=== PATIENT | male | born 1955 | race Caucasian/White ===

== ENCOUNTER → 2017-01-14 | Outpatient (CLI) | payer OTHER ==
--- NOTE | 2017-01-14 13:24 | KCIC ---
Indication: Pulmonary nodules. Smoker of 30 years. Follow-up. Technique: Axial images and coronal and sagittal reformatted images are provided. Comparison is from January 20, 2016 and January 14, 2015. One or more of the following individualized dose reduction techniques were utilized for this examination: 1. Automated exposure control 2. Adjustment of the mA and/or kV according to patient size 3. Use of iterative reconstruction technique Findings: 2 nodules in the right upper lobe on image 37 measuring up to 3 mm in size are stable. Nodule along the major fissure on the right on image 39 measuring 4 mm is stable. 4 mm nodule on image 41 in the right lower lobe is stable. Left upper lobe 4 mm nodule on image 35 is stable. Stability of these nodules is documented back to the 2014 exam. No new nodule is identified. There are right upper lobe calcified granulomas. There is mild emphysema. There is no consolidation. There is minimal presumed apical scarring which is stable. There is no pleural effusion. Central airways are patent. There is atheromatous disease in the thoracic aorta. The heart is not enlarged. Coronary artery calcifications are noted. There is no hilar or mediastinal adenopathy. There are degenerative changes in the spine. There is an old L1 compression fracture. IMPRESSION: 1. Stable pulmonary nodules, stability documented for 2 years. No further workup is required per updated Fleischner Society guidelines. 2. Granulomatous disease. 3. Mild emphysema. Electronically signed by: Jesus Knog MD (01/14/2017 1:20 PM) [email or web address]
== END | disposition home or self-care (01) ==
LOC: KCIC CT 11:46
PROVIDERS: ATTEND Family Medicine
DX: D71 Functional disorders of polymorphonuclear neutrophils (principal); J43.9 Emphysema, unspecified; R91.1 Solitary pulmonary nodule; F17.200 Nicotine dependence, unspecified, uncomplicated
CPT/HCPCS: 71250

== ENCOUNTER → 2018-01-23 | Outpatient (CLI) | payer OTHER ==
--- NOTE | 2018-01-23 14:05 | KCIC ---
CT chest without contrast dated 01/23/2018. No comparison available. Clinical data indication: Tobacco use. Lung cancer screening. 30 pack-year history of smoking. TECHNIQUE: Contiguous axial imaging the chest performed without the administration of intravenous contrast. Study was performed as low-dose lung cancer screening protocol with thin cut coronal and axial reconstruction. One or more of the following individualized dose reduction techniques were utilized for this examination: 1. Automated exposure control 2. Adjustment of the mA and/or kV according to patient size 3. Use of iterative reconstruction technique FINDINGS: Heart size within normal limits. No pericardial effusion. Scattered coronary artery calcifications. No mediastinal, hilar or axillary lymphadenopathy. Borderline enlarged pretracheal lymph node measures 8 mm short axis. Thyroid gland is unremarkable. The central airways are patent. Mild upper zone predominant paraseptal emphysema. There is a noncalcified pulmonary nodule in the left upper lobe on image 32 that measures 4 mm. There are a few scattered calcified granuloma. Noncalcified nodular density along the minor fissure on the right (image 35) measures about 4 mm. Small nodule in the right lower lobe on image 39 measures 3 mm. There is some vague reticular nodular densities at the dependent lower lobes with associated groundglass opacity, nonspecific. No pleural effusion. No pneumothorax. Images of upper abdomen are unremarkable. Mild superior endplate compression deformity of L1, age indeterminate. Multilevel spondylosis. IMPRESSION: 1. There are small scattered noncalcified pulmonary nodules within both lungs, nonspecific. Recommend follow-up low-dose lung cancer screening study in one year to ensure stability. Lung RADS category 2. 2. Mild emphysema. 3. Coronary artery calcifications. 4. Mild superior endplate compression deformity of L1, age indeterminate. Electronically signed by: Leonides Fry MD (01/23/2018 2:02 PM) [email or web address]
== END | disposition home or self-care (01) ==
LOC: KCIC CT 12:47
PROVIDERS: ATTEND Family Medicine
DX: Z12.2 Encounter for screening for malignant neoplasm of respiratory organs (principal); J43.9 Emphysema, unspecified; I25.10 Atherosclerotic heart disease of native coronary artery without angina pectoris; M43.8X6 Other specified deforming dorsopathies, lumbar region; M47.894 Other spondylosis, thoracic region; F17.200 Nicotine dependence, unspecified, uncomplicated; R91.1 Solitary pulmonary nodule
CPT/HCPCS: G0297

== ENCOUNTER → 2019-12-04 | Outpatient (CLI) | payer MEDICARE, OTHER ==
[~2019-12-04] MED LIST: CONTRAST GIVEN. MC PRN; IOHEXOL 350 MG/ML 100 ML VIAL. IV ONE
--- NOTE | 2019-12-04 15:03 | RAD ---
EXAM: CT Angiography Abdomen and Pelvis with right Lower Extremity Run-off INDICATION: Reason: PAD, RIGHT LEG / Spl. Instructions: IV OMNI 350 95 MLS / History: TECHNIQUE: CT angiography of the abdomen, pelvis, and right lower extremities was performed with intravenous contrast, [id number], collimated to the area of interest. Vascular 3D images were generated on a dedicated workstation and reviewed. All CT scans performed at this facility utilize dose optimization techniques as appropriate to the exam, including the following: Automated exposure control and adjustment of the mA and/or KV according to patient size (this includes techniques or standardized protocols for targeted exams where dose is indication/reason for exam). IV CONTRAST: Administered COMPARISON: None FINDINGS: VASCULAR FINDINGS: Abdominal Aorta and Branches: Scattered abdominal aortic calcifications. No flow-limiting stenosis. No aneurysm Celiac axis: No significant stenosis. SMA: No significant stenosis. MICHAEL: No significant stenosis. Right renal vessels: No significant stenosis. Left renal vessels: No significant stenosis. Infrarenal aorta: No significant stenosis or aneurysm. Pelvic Vessels: R. Common iliac artery: No significant stenosis. R. External iliac artery: No significant stenosis. R. Internal iliac artery: Less than 50 percent stenosis.. L. Common iliac artery: No significant stenosis. L. External iliac artery: No significant stenosis. L. Internal iliac artery: 50-69 percent stenosis in the proximal internal iliac artery on the left. Right Lower Extremity: R. Common femoral artery: Mixed calcified and noncalcified plaque. No significant stenosis. R. Profunda femoris artery: No significant stenosis. R. SFA: Scattered mixed calcified and noncalcified plaque without significant stenosis R. Popliteal artery: Combination of calcified and noncalcified plaque results in 50-69 percent stenosis in the proximal popliteal artery and greater than 70 percent stenosis in the distal popliteal artery in at least 2 spots. R. Anterior tibial artery: No significant stenosis. R. Tibioperoneal trunk:Distal calcified and noncalcified plaque results in greater than 50 percent stenosis. R. Posterior tibial artery: No significant stenosis. R. Peroneal artery: Mixed calcified and noncalcified plaque proximally results in greater than 50 percent stenosis R. Dorsalis pedis artery: No significant stenosis. R. Plantar artery: No significant stenosis. Left Lower Extremity: L. Common femoral artery: Unremarkable limited visualized portion. L. Profunda femoris artery: Unremarkable in the visualized portion. L. SFA: Not included L. Popliteal artery: Not included L. Anterior tibial artery: Not included L. Tibioperoneal trunk: Not included L. Posterior tibial artery: Not included L. Peroneal artery: Not included L. Dorsalis pedis artery: Not included L. Plantar artery: Not included NON VASCULAR FINDINGS: Mild centrilobular emphysema. Soft tissue in the right inguinal canal compatible with the previous inguinal hernia repair. IMPRESSION: 1. Right lower extremity: Calcified and noncalcified atherosclerotic disease diffusely in the arterial system but with greater involvement of the popliteal artery and its branch vessels. There is three-vessel runoff to the right foot and ankle. Electronically signed by: Bruce Peng MD (12/04/2019 3:00 PM) [id number]
== END | disposition home or self-care (01) ==
LOC: CT 11:20
PROVIDERS: ATTEND Family Medicine
DX: I70.291 Other atherosclerosis of native arteries of extremities, right leg (principal); I70.0 Atherosclerosis of aorta
CPT/HCPCS: 73706; Q9967

== ENCOUNTER → 2020-01-31 | Outpatient (CLI) | payer OTHER | END | disposition home or self-care (01) | LOC: LAB 13:24 | PROVIDERS: ATTEND Surgery Vascular Surgery | DX: Z20.828 Contact with and (suspected) exposure to other viral communicable diseases (principal) | CPT/HCPCS: U0003-CS ==

== ENCOUNTER 2020-02-05 07:06 | Outpatient (CLI) | payer MEDICARE, OTHER ==
[~2020-02-05] VITALS: Ht 182.9 cm; Wt 72.6 kg
[2020-02-05] VITALS (13 sets, daily range): BP systolic 131–167; BP diastolic 77–98
[2020-02-05] MEDS ORDERED: ASPI-886 PO (07:09)
[2020-02-05] MEDS ORDERED: AMLO2.5T5 PO (07:09)
[2020-02-05] MEDS ORDERED: LISI1TAB37 PO (07:09)
[2020-02-05] MEDS ORDERED: ATOR20TA58 PO (07:09)
[2020-02-05] MEDS ORDERED: LIDOCAINE 1% Multi-Dose 20 ML VIAL. ONE (07:41)
[2020-02-05] MEDS ORDERED: IODIXANOL 320 MG/ML 100 ML VIAL. ONE (07:41)
[2020-02-05 07:55] LABS: HEMATOCRIT 43.3 % (39.0-53.0); HEMOGLOBIN 14.9 g/dL (13.0-17.5); RED BLOOD COUNT 4.51 x10^6/uL (4.30-5.70); RED CELL DISTRIBUTION WIDTH 13.5 % (11.5-14.5); WHITE BLOOD COUNT 6.1 x10^3/uL (4.0-11.0)
[2020-02-05 08:05] LABS: PROTHROMBIN TIME PATIENT 12.5 SEC (11.7-14.0)
[2020-02-05 08:13] LABS: CALCIUM 8.9 mg/dL (8.5-10.1); CREATININE 0.8 mg/dL (0.7-1.3); GFR 97.6; POTASSIUM 3.8 mmol/L (3.5-5.1)
[2020-02-05] MEDS ORDERED: MIDAZOLAM HCL/PF 5 MG/5 ML VIAL. ONE (09:14)
[2020-02-05] MEDS ORDERED: HEPARIN for IV BOLUS 10,000 UNIT/10 ML VIAL. ONE (09:14)
[2020-02-05] MEDS ORDERED: fentaNYL PF VIAL 250 MCG/5 ML VIAL ONE (09:14)
[2020-02-05] MEDS ORDERED: LIDOCAINE 1% Multi-Dose 20 ML VIAL. INJ ONE (09:45)
[2020-02-05] MEDS ORDERED: IODIXANOL 320 MG/ML 100 ML VIAL. IART ONE (09:45)
[2020-02-05] MEDS ORDERED: fentaNYL PF VIAL 250 MCG/5 ML VIAL IV ONE (09:45)
[2020-02-05] MEDS ORDERED: MIDAZOLAM HCL/PF 5 MG/5 ML VIAL. IV ONE (09:45)
--- NOTE | 2020-02-05 10:08 | PDOC4 ---
OPERATIVE NOTE Date: Date: Feb 05, 2020 Pre-Op Diagnosis: Atherosclerosis of [place] arteries of right lower extremity with ischemic rest pain right foot Post-Op Diagnosis: Same as above Procedure Performed: 1. Ultrasound-guided access left common femoral artery #2 radiology supervision interpretation aortogram #3 radiology supervision interpretation right leg runoff #4 . -second order catheter placement below the diaphragm (access left common femoral artery catheter tip right common femoral artery) Surgeon: Joseluis Asher Anesthesia Type: Conscious sedation under surgeon and RN supervision using intravenous fentanyl and Versed Versed 1.5 mg fentanyl 100 mcg total 30 minutes Blood Loss: Less than 10 cc Specimans Obtained: None Findings: 1. Abdominal aorta is circumferentially calcified but widely patent without stenosis or aneurysm #2 bilateral common and external iliac arteries are widely patent without focal stenosis #3 bilateral common femoral arteries show bulky calcified plaque with moderate to severe stenosis, right profunda femoris artery shows focal high-grade stenosis at its origin #4 right superficial femoral artery and proximal popliteal artery widely patent #5 right P2 segment of the popliteal artery is occluded and heavily calcified there is reconstitution of the distal popliteal artery with PT and anterior tibial giving runoff to the foot but very sluggish flow #6 the left profunda femoris and proximal SFA are widely patent Complications: None Operative Note: Patient was taken to the Property Consultant and placed supine the table. The groins were prepped and draped in usual sterile fashion. Appropriate timeout was performed. Attention was directed the left common femoral artery was fluoroscopically marked over the femoral head and exam with ultrasound. The distal common femoral artery was noted to have bulky plaque but the proximal common femoral artery was patent and this area was accessed under real-time ultrasound guidance after injecting local anesthetic in the skin. An image of the vessels taken saved for the medical record. The cylinder technique was used to place a micropuncture needle and wire into the common femoral artery and iliac artery and then a cylinder technique was used to exchange the needle for a micropuncture sheath which backbled easily. This was used to introduce a Bentson wire to the abdominal aorta and exchanged the micropuncture sheath for a 5 [place] sheath which was aspirated and flushed without difficulty. This was used to introduce a flush catheter to the abdominal aorta and aortogram was obtained. Cath was pulled back to the order bifurcation and oblique pelvic angiograms were obtained. The catheter was used to hook aorta bifurcation and the wire and the catheter were passed in the proximal right common femoral artery. Right leg runoff was obtained. Oblique views of the right groin were obtained. The catheter was removed over the Bentson wire. The sheath was aspirated and flushed in an oblique view of the left femoral artery access site was obtained. The sheath was used to introduce a 5 [place] minx closure device which was deployed in the standard fashion with excellent hemostasis. Patient was escorted home in stable condition where I discussed the findings and the surgical plan with him and his . Patient was noted to have moderate common femoral stenosis and severe proximal right profunda femoris stenosis. He was also noted to have a mid popliteal occlusion that was highly calcified Plan will be to perform a right common femoral profunda femoral endarterectomy to maximize his inflow. If this does not improve his ischemic rest pain would consider endovascular intervention of the popliteal artery likely CSI orbital atherectomy. ARTEMIO ASHER MD Feb 05, 2020 10:08
--- NOTE | 2020-02-05 12:45 | NUR ---
Discharge Note: JENNIFER MAE Discharge instructions and discharge home medications reviewed with Spouse and a copy given. All questions have been answered and understanding verbalized. Patient ate breakfast with no difficulties. The following instructions and handouts were given: Moderate sedation, groin site care and smoking cessation. Discontinued lines and drains: Right forearm PIV, dressing clean dry intact. Patient discharged to home with spouse via wheelchair to private vehicle.
== END 2020-02-05 13:00 | disposition home or self-care (01) ==
LOC: CCL 07:06
PROVIDERS: ATTEND Surgery Vascular Surgery
DX: I70.291 Other atherosclerosis of native arteries of extremities, right leg (principal); I25.10 Atherosclerotic heart disease of native coronary artery without angina pectoris; E78.00 Pure hypercholesterolemia, unspecified; F17.210 Nicotine dependence, cigarettes, uncomplicated; Z79.899 Other long term (current) drug therapy; Z72.89 Other problems related to lifestyle
CPT/HCPCS: 36246; 36415; 75625; 75710; 76937; 80048; 85027; 85610; 99152; 99153; C1713; C1769; C1892; G0269; J1644; J2250; J3010; J3490; Q9967

== ENCOUNTER → 2020-03-04 | Outpatient (CLI) | payer OTHER ==
[2020-02-05 12:45] VITALS: BP 131/81
[~2020-03-04] MED LIST changes: +AMLO2.5T5 PO; +ASPI-886 PO; +ATOR20TA58 PO; -CONTRAST GIVEN. MC PRN; -IOHEXOL 350 MG/ML 100 ML VIAL. IV ONE; +LISI1TAB37 PO
== END ==
LOC: LAB 13:12
PROVIDERS: ATTEND Surgery Vascular Surgery
DX: Z01.812 Encounter for preprocedural laboratory examination (principal); I73.9 Peripheral vascular disease, unspecified; Z20.828 Contact with and (suspected) exposure to other viral communicable diseases
CPT/HCPCS: U0003-CS

== ENCOUNTER → 2020-04-04 | Outpatient (CLI) | payer OTHER ==
[2020-03-08 10:36] VITALS: BP 148/80
[~2020-04-04] MED LIST changes: +CLOP75TA PO
== END ==
LOC: LAB 13:51
PROVIDERS: ATTEND Surgery Vascular Surgery
DX: Z01.812 Encounter for preprocedural laboratory examination (principal); Z20.828 Contact with and (suspected) exposure to other viral communicable diseases
CPT/HCPCS: U0003

== ENCOUNTER 2020-04-07 09:08 | Outpatient (CLI) | payer OTHER ==
[2020-04-07] VITALS (8 sets, daily range): BP systolic 138–171; BP diastolic 83–93
[~2020-04-07] VITALS: Ht 182.9 cm; Wt 72.6 kg
[~2020-04-07 09:08] MED LIST changes: -CLOP75TA PO
[2020-04-07 09:31] LABS: HEMOGLOBIN 14.6 g/dL (13.0-17.5); RED BLOOD COUNT 4.39 x10^6/uL (4.30-5.70); RED CELL DISTRIBUTION WIDTH 13.6 % (11.5-14.5)
[2020-04-07 09:42] LABS: CALCIUM 8.6 mg/dL (8.5-10.1); CREATININE 0.8 mg/dL (0.7-1.3); GFR 97.6; POTASSIUM 3.8 mmol/L (3.5-5.1); PROTHROMBIN TIME PATIENT 12.4 SEC (11.7-14.0)
[2020-04-07] MEDS ORDERED: IODIXANOL 320 MG/ML 100 ML VIAL. ONE (09:42)
[2020-04-07] MEDS ORDERED: LIDOCAINE 1% Multi-Dose 20 ML VIAL. ONE (09:43)
[2020-04-07] MEDS ORDERED: MIDAZOLAM HCL/PF 5 MG/5 ML VIAL. ONE (10:23)
[2020-04-07] MEDS ORDERED: fentaNYL PF VIAL 100 MCG/2 ML VIAL ONE (10:24)
[2020-04-07] MEDS ORDERED: HEPARIN for IV BOLUS 10,000 UNIT/10 ML VIAL. ONE (10:24)
[2020-04-07] MEDS ORDERED: LIDOCAINE 1% Multi-Dose 20 ML VIAL. INJ ONE (10:30)
[2020-04-07] MEDS ORDERED: IODIXANOL 320 MG/ML 100 ML VIAL. IART ONE (10:30)
[2020-04-07] MEDS ORDERED: fentaNYL PF VIAL 100 MCG/2 ML VIAL IV ONE (10:30)
[2020-04-07] MEDS ORDERED: MIDAZOLAM HCL/PF 5 MG/5 ML VIAL. IV ONE (10:30)
[2020-04-07] MEDS ORDERED: CLOPIDOGREL BISULFATE 75 MG TABLET PO ONE (12:00)
[2020-04-07] MEDS ORDERED: HEPARIN for IV BOLUS 10,000 UNIT/10 ML VIAL. IV ONE (12:00)
[2020-04-07] MEDS ORDERED: CLOPIDOGREL BISULFATE 75 MG TABLET ONE (12:16)
[2020-04-07] MEDS ORDERED: NITROGLYCERIN 200 MCG/2 ML SYRINGE FOR CATH/VASC LAB. IART ONE (13:00)
--- NOTE | 2020-04-07 13:32 | PDOC4 ---
OPERATIVE NOTE Date: Date: Mar 07, 2020 Pre-Op Diagnosis: Atherosclerosis of [place] arteries of right lower extremity with ischemic rest pain Atherosclerosis of [place] arteries of right lower extremity with ulceration of the heel Post-Op Diagnosis: Same as above Procedure Performed: 1. Aortogram radiology supervision to rotation #2 right lower extremity runoff radiology supervision hypertension #3 right popliteal artery balloon angioplasty #4 right anterior tibial artery balloon angioplasty #5 right anterior tibial artery retrograde pedal access and subsequent first order catheter placement below the diaphragm from separate access (access right anterior tibial artery catheter tip superficial femoral artery) #6 ultrasound-guided access left common femoral artery #7 ultrasound-guided access right anterior tibial artery Surgeon: Joseluis Asher Anesthesia Type: Conscious sedation under surgeon and RN supervision using intravenous fentanyl and Versed 2 hours see nurses note for fentanyl Versed doses Blood Loss: Minimal Specimans Obtained: None Findings: Aorta is tortuous but widely patent without significant occlusive disease Bilateral common and external iliac arteries widely patent Previous right common femoral artery endarterectomy right profundofemoral endarterectomy and proximal right superficial femoral endarterectomy are widely patent without stenosis The right SFA is patent The proximal popliteal artery is patent, the P2 segment of popliteal artery behind the knee is completely occluded with collaterals reconstituting the distal P3 segment of popliteal artery with a small JUSTYNA and BUCKLE SEWER giving flow to the foot Occluded popliteal artery Stenotic proximal anterior tibial artery and mid anterior tibial artery Successful balloon angioplasty the popliteal artery and a long segment anterior tibial artery with inline flow to the foot via the JUSTYNA and PT with palpable pulses at the ankle at the end of the case Complications: none Operative Note: Patient was escorted to Bill Cutter and placed supine the table. The groins were prepped and draped in usual sterile fashion. Proper timeout was performed. Attention was directed left common femoral artery was fluoroscopic marked of the femoral head and exam with ultrasound. The vessel was found to be patent with good flow and an image of the vessels taken safer the medical record. Under real-time ultrasound guidance local acetic was injected in the left groin and left common femoral artery was accessed in retrograde fashion using micropuncture needle. Seldinger technique was used to place a wire and exchanged this for a micropuncture sheath which backbled easily. This was used to introduce a Bentson wire and abdominal aorta and exchanged the micropuncture sheath for a 5 [place] sheath which was aspirated and flushed without difficulty. These were used introduce a flush catheter into the abdominal aorta and aortogram was obtained. Cath was pulled back to your bifurcation and oblique pelvic angiograms were obtained. Catheters used to hook your bifurcation and passed the wire and the catheter to the right common femoral artery. Right leg runoff was obtained. I decided to intervene patient was given intravenous heparin and the catheter was used to place a long Storq wire into the right distal SFA under fluoroscopic guidance. This was used to exchange the 5 [place] sheath for a 6 [place] 65 cm Terumo destination sheath passed up and over the bifurcation of the distal tip in the distal right SFA. I use this with an angled 4F Terumo catheter and a Bentson wire and then a telescoped 0.018 Terumo catheter and a 0.018 Glidewire advantage to try to cross from above. I was unable to do so and so attention was directed to the right foot which was prepped and draped in usual sterile fashion. The right anterior tibial artery distally was examined with ultrasound and found to be patent with an intact lumen just above the ankle. Local acetic was injected right ankle and the right distal anterior tibial artery was accessed in retrograde fashion using a micropuncture needle. I passed a wire and then the standard technique was used to place a Cook pedal access sheath retrograde into anterior tibial artery from the ankle. Radial cocktail was given and further heparin was given. With this catheter in the ankle I was able to introduce a 0.018 Glidewire advantage and the 0.018 Terumo catheter retrograde and cross the popliteal artery occlusion from below and reenter the true lumen of the popliteal above the knee from a retrograde fashion. I passed the catheter into the superficial femoral artery retrograde from the foot and then use this to place a 0.014 Glidewire advantage retrograde into the sheath under fluoroscopic guidance. I used this to body floss the patient with the tip coming out of the left femoral artery access and the other into the wire out the pedal access. With this in place I attempted to pass a TurboHawk device but it would not pass and so no arthrectomy was performed. I performed balloon angioplasty of the popliteal artery with 4 mm balloon and then a 4 mm drug-eluting balloon and balloon angioplasty of the long segment anterior tibial artery with a proximal 3 mm balloon and then distally a 2.5 mm balloon down to the ankle. There was brisk flow to the foot via the JUSYTNA and the BUCKLE SEWER. I used the balloon catheter to reverse the wire into the foot with the soft tip but out into the branches of the dorsalis pedis. I pulled the pedal sheath and use the balloon inflated across the access site to treat the pedal access site with excellent hemostasis and excellent flow to the foot. The wires were removed and angiography showed brisk flow to the foot via the JUSTYNA BUCKLE SEWER. There was palpable pulse at the ankle. The 6 [place] destination sheath was pulled back to the order bifurcation and used to pass the Bentson wire and abdominal aorta. This was used to remove the sheath and deliver a 6 [place] Angio-Seal device to the left femoral artery access site with excellent hemostasis the left groin. Patient was loaded with 300 mg of Plavix and escorted recovery in stable condition. There were no complications and he tolerated procedure well throughout. ARTEMIO ASHER MD Apr 07, 2020 13:32
[2020-04-07] MEDS ORDERED: NITROGLYCERIN 200 MCG/2 ML SYRINGE FOR CATH/VASC LAB. ONE (13:33)
[2020-04-07] MEDS ORDERED: CLOP75TA PO (14:24)
--- NOTE | 2020-04-07 15:25 | NUR ---
Discharge Note: JENNIFER MAE Discharge instructions and discharge home medications reviewed with Patient and spouse; and a copy given. All questions have been answered and understanding verbalized. The following instructions and handouts were given: moderate sedation, angioseal, and groin site care. Discontinued lines and drains: Right FA iv dc'c and tip intact. Patient discharged to home with spouse via personal vehicle.
== END 2020-04-07 13:12 | disposition home or self-care (01) ==
LOC: CCL 09:08
PROVIDERS: ATTEND Surgery Vascular Surgery
DX: I70.221 Atherosclerosis of native arteries of extremities with rest pain, right leg (principal); I10 Essential (primary) hypertension; E78.00 Pure hypercholesterolemia, unspecified; M19.90 Unspecified osteoarthritis, unspecified site; F17.210 Nicotine dependence, cigarettes, uncomplicated; Z79.899 Other long term (current) drug therapy; Z79.82 Long term (current) use of aspirin; Z98.890 Other specified postprocedural states
CPT/HCPCS: 36415; 37224; 37228; 75710; 76937; 80048; 85027; 85610; 99152; 99153; C1713; C1725; C1760; C1769; C1892; C1894; C2623; J1644; J2250; J3010; J3490; Q9967; G0269; C1771